=== PATIENT | female | born 1985 | race Caucasian/White ===

== ENCOUNTER 2021-09-30 16:36 | Emergency (ER) | payer BC, MEDICAID ==
[~2021-09-30] VITALS: Ht 160 cm; Wt 59.0 kg
[2021-09-30] MEDS ORDERED: LIDOCAINE 1%-EPI 1:100,000 20 ML VIAL IJ ONE (19:15)
[2021-09-30] MEDS ORDERED: SULFAMETH/TRIMETH 800/160 MG TABLET PO ONE (19:15)
--- NOTE | 2021-09-30 19:30 | NUR ---
Assumed care of patient from day shift RN Marty. Pt came in to the ER with cc of abscess on left inner buttock.
[2021-09-30] MEDS ORDERED: SULFAMETH/TRIMETH 800/160 MG TABLET ONE (19:43)
[2021-09-30] MEDS ORDERED: SULF1TAB48 PO (20:33)
--- NOTE | 2021-09-30 20:41 | NUR ---
Patient discharged to home in stable condition. Written and verbal after care instructions given. Patient verbalizes understanding of instructions. Stressed follow up or return to ER for worsening s/s. Patient ambulated fr the ER with steady gait. All belongings with patient.
[2021-09-30 20:42] VITALS: BP 124/71
== END 2021-09-30 20:42 | disposition home or self-care (01) ==
LOC: ER 16:42
DX: L02.31 Cutaneous abscess of buttock (principal); L03.317 Cellulitis of buttock
CPT/HCPCS: 10060; 99283; J3490; A4663

== ENCOUNTER 2021-10-02 16:24 | Emergency (ER) | payer MEDICAID ==
[~2021-10-02] VITALS: Ht 160 cm; Wt 59.0 kg
[~2021-10-02 16:24] MED LIST: SULF1TAB48 PO
--- NOTE | 2021-10-02 20:14 | NUR ---
pt in room 4a, Dr. Marrufo at bedside for MSE.
[2021-10-02] MEDS ORDERED: HYDROMORPHONE 1 MG/1 ML DISP.SYRIN ONE (20:23)
[2021-10-02] MEDS ORDERED: ONDANSETRON ODT 4 MG TAB.RAPDIS ONE (20:23)
[2021-10-02] MEDS ORDERED: LORAZEPAM 1 MG TABLET ONE (20:23)
[2021-10-02] MEDS ORDERED: ONDANSETRON ODT 4 MG TAB.RAPDIS SL ONE (20:30)
[2021-10-02] MEDS ORDERED: LORAZEPAM 0.5 MG TABLET PO ONE (20:30)
[2021-10-02] MEDS ORDERED: HYDROMORPHONE 1 MG/1 ML DISP.SYRIN IM ONE (20:30)
[2021-10-02] MEDS ORDERED: ONDA4TAB5 PO (21:50)
[2021-10-02] MEDS ORDERED: HYDR-4209 PO (21:50)
--- NOTE | 2021-10-02 22:01 | NUR ---
Patient discharged to home in stable condition. Written and verbal after care instructions given. Patient verbalizes understanding of instructions. Stressed follow up or return to ER for worsening s/s.
[2021-10-02 22:02] VITALS: BP 115/75
== END 2021-10-02 22:03 | disposition home or self-care (01) ==
LOC: ER 16:24
DX: Z48.817 Encounter for surgical aftercare following surgery on the skin and subcutaneous tissue (principal); L02.416 Cutaneous abscess of left lower limb
CPT/HCPCS: 96372; 99284; J1170; A4663; Q0162